=== PATIENT | female | born 1985 | race Caucasian/White ===

== ENCOUNTER 2017-01-06 15:31 | Observation (INO) | payer BC ==
[~2017-01-06] VITALS: Ht 167.6 cm; Wt 88.5 kg
[2017-01-06 15:55] LABS: HEMOGLOBIN 13.7 gm/dl (12.3-15.3); RED BLOOD COUNT 4.45 M/UL (4.00-5.10); WHITE BLOOD COUNT 9.3 K/UL (4.5-11.0)
[2017-01-06 16:16] LABS: BUN/CREATININE RATIO 17 (0-10)
[2017-01-06] MEDS ORDERED: BYSTOLIC20 MG PO (22:02)
[2017-01-06] MEDS ORDERED: VIIBRYD40 MG PO (22:05)
[2017-01-07] MEDS ORDERED: HYDROCHLOROTH12.5 M1 PO (10:50)
== END 2017-01-07 11:02 | disposition home or self-care (01) ==
LOC: ER1 15:31 → ZEROF 18:00 → M/S 18:00
PROVIDERS: Emergency Medicine; ADMIT Internal Medicine
DX: I16.0 Hypertensive urgency (principal); R41.82 Altered mental status, unspecified; I10 Essential (primary) hypertension; E28.2 Polycystic ovarian syndrome; Z87.442 Personal history of urinary calculi; Z79.899 Other long term (current) drug therapy
CPT/HCPCS: 36415; 70450; 80053; 81001; 82550; 82553; 82962; 83735; 83874; 84484; 84703; 85025; 93005; 99285; G0378

== ENCOUNTER 2021-03-06 21:38 | Emergency (ER) | payer BC, OTHER ==
[~2021-03-06 21:38] MED LIST: BYSTOLIC20 MG PO; CYCLOBENZAPRINE10 MG PO; HYDROCHLOROTH12.5 M1 PO; IBUPROFEN800 MG PO; K-DUR TAB 20 M20 MEQ PO; NAPROSYN500 MG PO; NAPROXEN500 MG PO; VIIBRYD40 MG PO; ZOFRAN4 MG PO
[2021-03-06] MEDS ORDERED: MEDROL DOSEPAK 24 MG PO (22:15)
[2021-03-06] MEDS ORDERED: IBUPROFEN800 MG PO (22:27)
== END 2021-03-06 22:37 | disposition home or self-care (01) ==
LOC: ER1 21:38
DX: M72.2 Plantar fascial fibromatosis (principal)
CPT/HCPCS: 73630; 96372; 99283

== ENCOUNTER 2021-07-22 17:39 | Emergency (ER) | payer BC ==
[~2021-07-22] VITALS: Ht 167.6 cm; Wt 90.7 kg
[~2021-07-22 17:39] MED LIST changes: +MEDROL DOSEPAK 24 MG PO
[2021-07-22] MEDS ORDERED: PROVENTIL HFA6.7 GM INH (19:27)
== END 2021-07-22 20:55 | disposition home or self-care (01) ==
LOC: ER1 17:39
DX: U07.1 COVID-19 (principal); I10 Essential (primary) hypertension; Z23 Encounter for immunization
CPT/HCPCS: 99283; M0243

== ENCOUNTER 2021-12-06 03:50 | Emergency (ER) | payer BC ==
[~2021-12-06 03:50] MED LIST changes: +PROVENTIL HFA6.7 GM INH
[2021-12-06 04:33] LABS: HEMOGLOBIN 13.7 gm/dl (12.3-15.3); RED BLOOD COUNT 4.49 M/UL (4.00-5.10); WHITE BLOOD COUNT 9.3 K/UL (4.5-11.0)
[2021-12-06 04:56] LABS: BUN/CREATININE RATIO 25 (0-10)
[2021-12-06] MEDS ORDERED: TORADOL 10 MG T10 MG PO (05:26)
== END 2021-12-06 05:35 | disposition home or self-care (01) ==
LOC: ER1 03:50
PROVIDERS: Family Medicine
DX: R10.13 Epigastric pain (principal); I10 Essential (primary) hypertension
CPT/HCPCS: 80053; 83690; 85025; 96374; 96375; 99284; J1885; J2270; J2405

== ENCOUNTER 2022-04-15 03:53 | Emergency (ER) | payer BC ==
[~2022-04-15 03:53] MED LIST changes: +TORADOL 10 MG T10 MG PO
[2022-04-15 05:05] LABS: HEMOGLOBIN 13.8 gm/dl (12.3-15.3); RED BLOOD COUNT 4.51 M/UL (4.00-5.10); WHITE BLOOD COUNT 8.8 K/UL (4.5-11.0)
[2022-04-15 05:31] LABS: BUN/CREATININE RATIO 20 (0-10)
== END 2022-04-15 06:15 | disposition home or self-care (01) ==
LOC: ER1 03:53
PROVIDERS: Emergency Medicine
DX: K80.70 Calculus of gallbladder and bile duct without cholecystitis without obstruction (principal)
CPT/HCPCS: 80053; 83690; 85025; 96374; 96375; 99284; J1885; J2270; J2405